=== PATIENT | female | born 1940 | race Caucasian/White ===

== ENCOUNTER 2016-09-05 22:40 | Emergency (ER) | payer MEDICARE ==
[~2016-09-05] VITALS: Ht 165.1 cm; Wt 75.0 kg
[2016-09-05 22:53] VITALS: BP 112/59; PULSE 72; RESP 18; TEMP 98.6; O2SAT 95
--- NOTE | 2016-09-05 22:56 | PD ---
HPI Chief Complaint: Fall Time Seen by Provider: 22:53 Travel History International Travel<30 days: No Contact w/Intl Traveler<30days: No Traveled to known affect area: No History of Present Illness HPI The patient is a 76 year old female who presents to the [facility] emergency department with a history of tripping over a car stopped in a local parking lot prior to arrival. The patient reports that she landed on both knees. The patient reports that the left knee hurts more than the right. The patient reports that she has had a patellar fracture in the left knee twice in the past, 15 years ago she had surgery on the left knee and again 9 years ago surgery on the left knee related to patellar fractures. She denies having a local orthopedic physician currently. The patient denies hitting her head or losing consciousness. She denies having any neck pain, numbness or tingling to her extremities, or weakness to her extremities. She denies having any chest pain, chest pressure, shortness of breath, or abdominal pain. Otherwise on review of systems, she denies any recent fevers, cough, congestion, vomiting, diarrhea, urinary symptoms, or other neurologic symptoms. Tetanus reportedly up to date. [facility] Past Medical History Narrative Medical The patient's past medical history is significant for ulcerative colitis, hypertension ?: Not Past Surgical History Narrative Surgical The patient's past surgical history is significant for left patella surgery 2. Social History Alcohol Use: Yes (2 glasses of wine daily) Tobacco Use: No Substance Use: No Allergies-Medications (Allergen,Severity, Reaction): Coded Allergies: No Known Allergies (Unverified , 09/05/16) Reported Meds & Prescriptions Reported Meds & Active Scripts Active Lortab (Hydrocodone-Acetaminophen) 5-325 Mg Tab 1 Tab PO Q6H PRN Reported Prednisone 10 Mg Tab 10 Mg PO DAILY Calcium (Oyster Shell) 500 Mg Tab 1,000 Mg PO Prolia Inj (Denosumab) 60 Mg/Ml Inj 60 Mg SQ Q180D Vitamin D-1000 (Cholecalciferol) 1,000 Unit Tab 1,000 Units PO DAILY Alprazolam 0.5 Mg Tab 0.5 Mg PO BID PRN Losartan (Losartan Potassium) 25 Mg Tab 25 Mg PO DAILY Hydrochlorothiazide 12.5 Mg Cap 12.5 Mg PO DAILY Verapamil (Verapamil HCl) 40 Mg Tab 40 Mg PO BID Narrative Medication Asacol, verapamil, alprazolam, hydrochlorothiazide, losartan Review of Systems Except as stated in HPI: all other systems reviewed are Neg General / Constitutional: No: Fever Eyes: No: Visual changes HENT: No: Headaches Cardiovascular: No: Chest Pain or Discomfort Respiratory: No: Shortness of Breath Gastrointestinal: No: Abdominal Pain Genitourinary: No: Dysuria Musculoskeletal: Positive: Myalgias, Arthralgias, Limited ROM, Edema, Pain Skin: No Rash Neurologic: No: Weakness, Focal Abnormalities, Change in Mentation, Slurred Speech, Sensory Disturbance Psychiatric: No: Depression Endocrine: No: Polydipsia Hematologic/Lymphatic: No: Easy Bruising Physical Exam Narrative General: The patient is a well-developed well-nourished female in no acute distress. Head and Neck exam: Head is normocephalic atraumatic. Eyes: EOMI, pupils are equal round and reactive to light. Nose: Midline septum with pink mucous membranes Mouth: Dentition unremarkable. Moist mucus membranes. Posterior oropharynx is not erythematous. No tonsillar hypertrophy. Uvula midline. Airway patent. Neck: No palpable lymphadenopathy. No nuchal rigidity. No thyromegaly. No spinous process tenderness to palpation. No step-off or crepitus. No erythema or ecchymosis. She has full range of neck motion without pain. Cardiovascular: Regular rate and rhythm without murmurs, gallops, or rubs. Lungs: Clear to auscultation bilaterally. No wheezes, rhonchi, or rales. Abdomen: Soft, without tenderness to palpation in all 4 quadrants of the abdomen. No guarding, rebound, or rigidity. Normal bowel sounds are audible. No tenderness on palpation of McBurney's point. Extremities: No clubbing, cyanosis, or edema. 2+ pulses in all 4 extremities. The area of interest is bilateral knees. The patient has swelling noted anteriorly to bilateral knees. The patient has tenderness on palpation over bilateral knees with an effusion noted. There is no ligament laxity. There is no step-off or crepitus on palpation. The patient has decreased range of motion related to pain. The patient has intact sensation over all toes. The patient has less than 3 second capillary refill. The patient has full strength and range of motion of her ankles and toes. No ligamentous injury on palpation. Back: No spinous process tenderness to palpation. No spinous process tenderness to palpation. No step-off or crepitus. No erythema or ecchymosis. No costovertebral angle tenderness to palpation. Neurologic Exam: Grossly nonfocal. Skin Exam: No rash noted. She has a superficial abrasion to the left posterior elbow. Data Data Last Documented VS Vital Signs Date Time Temp Pulse Resp B/P Pulse Ox O2 Delivery O2 Flow Rate FiO2 09/06/16 00:40 86 18 151/70 95 Room Air 09/05/16 22:53 98.6 Orders Knee, Complete (4vws) (09/05/16 22:54) Ice/Cold Pack (09/05/16 22:54) Knee, Complete (4vws) (09/05/16 22:54) Complete Blood Count With Diff (09/05/16 23:46) Basic Metabolic Panel (Bmp) (09/05/16 23:46) Prothrombin Time / Inr (Pt) (09/05/16 23:46) Act Partial Throm Time (Ptt) (09/05/16 23:46) Iv Access Insert/Monitor (09/05/16 23:46) Ecg Monitoring (09/05/16 23:46) Oximetry (09/05/16 23:46) Splint Or Brace Apply/Monitor (09/05/16 23:46) Morphine Inj (Morphine Inj) (09/06/16 00:00) Ondansetron Inj (Zofran Inj) (09/06/16 00:00) Sodium Chlorid 0.9% 500 Ml Inj (Ns 500 M (09/06/16 00:00) Potassium Chloride (Kcl) (09/06/16 01:15) Ketorolac Inj (Toradol Inj) (09/06/16 01:15) Labs Laboratory Tests Test 09/06/16 00:00 White Blood Count 7.2 TH/MM3 Red Blood Count 4.06 MIL/MM3 Hemoglobin 12.4 GM/DL Hematocrit 37.0 % Mean Corpuscular Volume 91.1 FL Mean Corpuscular Hemoglobin 30.5 PG Mean Corpuscular Hemoglobin 33.5 % Concent Red Cell Distribution Width 14.7 % Platelet Count 246 TH/MM3 Mean Platelet Volume 7.6 FL Neutrophils (%) (Auto) 57.8 % Lymphocytes (%) (Auto) 33.5 % Monocytes (%) (Auto) 7.4 % Eosinophils (%) (Auto) 0.6 % Basophils (%) (Auto) 0.7 % Neutrophils # (Auto) 4.1 TH/MM3 Lymphocytes # (Auto) 2.4 TH/MM3 Monocytes # (Auto) 0.5 TH/MM3 Eosinophils # (Auto) 0.0 TH/MM3 Basophils # (Auto) 0.0 TH/MM3 CBC Comment DIFF FINAL Differential Comment Prothrombin Time 9.6 SEC Prothromb Time International 0.9 RATIO Ratio Activated Partial 19.8 SEC Thromboplast Time Sodium Level 143 MEQ/L Potassium Level 3.2 MEQ/L Chloride Level 105 MEQ/L Carbon Dioxide Level 27.1 MEQ/L Anion Gap 11 MEQ/L Blood Urea Nitrogen 16 MG/DL Creatinine 0.75 MG/DL Estimat Glomerular Filtration 76 ML/MIN Rate Random Glucose 101 MG/DL Calcium Level 9.0 MG/DL MDM Medical Decision Making Medical Screen Exam Complete: Yes Emergency Medical Condition: Yes Medical Record Reviewed: Yes Interpretation(s) Last Impressions Knee X-Ray 09/05/162253 Signed Impressions: Service Date/Time: Monday, September 05, 2016 23:13 - CONCLUSION: 1. Mildly comminuted transverse fracture through the inferior patella with overlying soft tissue swelling. 2. Lipohemarthrosis. 3. Osteopenia. Karlos Perez MD Knee X-Ray 09/05/162253 Signed Impressions: Service Date/Time: Monday, September 05, 2016 23:16 - CONCLUSION: 1. No acute fracture or malalignment. 2. Status post open region internal fixation of old patellar fracture. 3. Evidence of joint effusion. Karlos Perez MD Differential Diagnosis Patellar fracture, versus internal derangement of the knee, versus knee effusion , versus ligamentous injury Narrative Course During the course of the patients emergency department visit, the patients history, examination, and differential diagnosis were reviewed with the patient. The patient had IV access obtained and blood work sent for analysis. The patient states on a quality assurance monitor body with oximetry and blood pressure monitoring. An x-ray of bilateral knees was ordered. The patient was initially provided morphine for pain, Zofran for nausea, normal saline IV fluids. The patients laboratory studies were reviewed and remarkable for CBC is within normal limits, basic metabolic profile is remarkable for potassium of 3.2, GFR 76, PT 9.6, PTT 19.8. Radiology studies were reviewed and remarkable for an x-ray of the left knee that shows no acute fracture or malalignment, status post open reduction internal fixation of an old patella fracture, evidence of joint effusion, right knee x-ray reveals a mildly comminuted transverse fracture through the inferior patella with overlying soft tissue swelling, lipohemarthrosis, osteopenia. The patient was placed in bilateral knee immobilizers. The patient was given the name of the orthopedic physician for follow-up, Dr. Sanford. She was instructed to not weight-bear until cleared by the orthopedic physician. She was given a prescription for a wheelchair. The patient is resting comfortably and feels better, is alert and in no distress. The patients results and examination findings were discussed with the patient. The repeat examination is unremarkable and benign. The history, exam, diagnostic testing, and current condition do not suggest any significant pathology to warrant further testing, continued ED treatment, admission, or surgical evaluation at this point. The vital signs have been stable. The patient does not have uncontrollable pain, intractable vomiting, or other significant symptoms. The patient's condition is stable and appropriate for discharge. The patient will pursue further outpatient evaluation with a primary care physician or other designated or consulting physician as indicated in the discharge instructions. The patient expressed understanding and was agreeable with this plan. Diagnosis Primary Impression: Patellar sleeve fracture of right knee Qualified Code: S82.091A - Patellar sleeve fracture of right knee, closed, initial encounter Additional Impression: Left anterior knee pain Referrals: Omar Sanford MD 1 day Orthopedist Patient Instructions: General Instructions, Patellar Fracture (ED) Departure Forms: Tests/Procedures Med/Other Pt SpecificInfo: Prescription(s) given Scripts Wheelchair 1 Mis Mis #1 EA .ROUTE DIRECTED Ref 0 Prov:Evy Talley MD 09/06/16 Hydrocodone-Acetaminophen (Lortab)5-325 Mg Tab1 Tab PO Q6H PRN (PAIN) #12 TAB Ref 0 Prov:Evy Talley MD 09/06/16 Disposition: 01 DISCHARGE HOME Condition: Stable Evy Talley MD Sep 05, 2016 22:56
[2016-09-05] MEDS ORDERED: CALC500T35 PO (23:06)
[2016-09-05] MEDS ORDERED: PRED10 PO (23:06)
[2016-09-05] MEDS ORDERED: HYDR12.57 PO (23:06)
[2016-09-05] MEDS ORDERED: ALPR0.5T3 PO (23:06)
[2016-09-05] MEDS ORDERED: VITA1000 PO (23:06)
[2016-09-05] MEDS ORDERED: LOSA25TA PO (23:06)
[2016-09-05] MEDS ORDERED: DENO60P SQ (23:06)
[2016-09-05] MEDS ORDERED: VERA40TA PO (23:06)
--- NOTE | 2016-09-05 23:41 | RADRPT ---
EXAM DATE/TIME: 09/05/2016 23:13 [facility] COMPARISON: No previous studies available for comparison. INDICATIONS : Fall landed on knees. MEDICAL HISTORY : None. SURGICAL HISTORY : None. ENCOUNTER: Initial ACUITY: 1 day PAIN SCORE: 0/10 LOCATION: Right knee FINDINGS: A standard 4 view examination of the right knee was obtained and demonstrates a mildly comminuted tra nsverse fracture through the inferior pole of the patella. The inferior fracture fragment is displace d approximately 1 cm posteriorly. There is overlying soft tissue swelling and evidence of a lipohemar throsis. There is diffuse osteopenia. The femur and tibia are intact. CONCLUSION: 1. Mildly comminuted transverse fracture through the inferior patella with overlying soft tissue swel ling. 2. Lipohemarthrosis. 3. Osteopenia. Karlos Perez MD on September 05, 2016 at 23:38 Board Certified Radiologist. This report was verified electronically.
--- NOTE | 2016-09-05 23:42 | RADRPT ---
EXAM DATE/TIME: 09/05/2016 23:16 This report includes an Addendum and supersedes previous reports for this exam. [facility] COMPARISON: No previous studies available for comparison. INDICATIONS : Fall landed on knees. Laceration to anterior knee. MEDICAL HISTORY : None. SURGICAL HISTORY : Left patella surgery. ENCOUNTER: Initial ACUITY: 1 day PAIN SCORE: 0/10 LOCATION: Left knee FINDINGS: A standard 4 view examination of the left knee was obtained and demonstrates remote postsurgical prakash ges with K wires and cerclage wires surrounding an old patellar fracture. There is no acute fracture or malalignment. There are degenerative changes in the patellofemoral joint with mild spurring. There is fullness in the suprapatellar bursa region consistent with a joint effusion. The femur is intact. CONCLUSION: 1. No acute fracture or malalignment. 2. Status post open region internal fixation of old patellar fracture. 3. Evidence of joint effusion. Karlos Perez MD on September 05, 2016 at 23:40 Board Certified Radiologist. This report was verified electronically. ADDENDUM: I reviewed the study again with Dr. Arriaza. On the lateral view there is evidence for a small non displaced cortical break through the posterior mid pole of the patella most characteristic of a nondi splaced fracture with joint effusion. Nehemias Granda MD on September 07, 2016 at 11:17 Board Certified Radiologist. This report was verified electronically.
[2016-09-06] MEDS ORDERED: SODIUM CHLORID 0.9% 500 ML INJ 500 ML IV ONE
[2016-09-06] MEDS ORDERED: ONDANSETRON HCL 4 MG/2 ML VIAL IV PUSH ONE
[2016-09-06] MEDS ORDERED: MORPHINE SULFATE 4 MG/ML INJ IV PUSH ONE
[2016-09-06 00:15] LABS: AUTOMATED NEUTROPHIL # 4.1 TH/MM3 (1.8-7.7); BASOPHIL % 0.7 % (0.0-2.0); EOSINOPHIL % 0.6 % (0.0-4.0); HEMO FLAGS DIFF FINAL; LYMPH % 33.5 % (9.0-44.0); LYMPHOCYTE # 2.4 TH/MM3 (1.0-4.8); MEAN CELL VOLUME 91.1 FL (80.0-100.0); MEAN CORPUSCULAR HEMOGLOBIN 30.5 PG (27.0-34.0); MEAN CORPUSCULAR HGB CONC 33.5 % (32.0-36.0); MONO % 7.4 % (0.0-8.0); NEUT % 57.8 % (16.0-70.0); PLATELET COUNT 246 TH/MM3 (150-450); RED BLOOD COUNT 4.06 MIL/MM3 (4.00-5.30); RED CELL DISTRIBUTION WIDTH 14.7 % (11.6-17.2); WHITE BLOOD COUNT 7.2 TH/MM3 (4.0-11.0)
[2016-09-06 00:34] LABS: APTT (PATIENT) 19.8 SEC (24.3-30.1); INTERNATIONAL NORMALIZED RATIO 0.9 RATIO; PROTHROMBIN TIME - PATIENT 9.6 SEC (9.8-11.6)
[2016-09-06 00:40] VITALS: BP 151/70; PULSE 86; RESP 18; O2SAT 95
[2016-09-06 00:45] LABS: BICARBONATE 27.1 MEQ/L (21.0-32.0); POTASSIUM 3.2 MEQ/L (3.5-5.1)
[2016-09-06] MEDS ORDERED: HYDR-3533 PO (00:50)
[2016-09-06] MEDS ORDERED: POTASSIUM CHLORIDE 20 MEQ CONTROLLED RELEASE TAB PO ONE (01:15)
[2016-09-06] MEDS ORDERED: KETOROLAC TROMETHAMINE 30 MG/ML (IVP) VIAL IV PUSH ONE (01:15)
[2016-09-06] MEDS ORDERED: WHEEMIS3 (01:19)
[2016-09-06] MEDS ORDERED: oxyCODONE/ACETAMINOPHEN 5 MG/325 MG TAB PO ONE (02:30)
== END 2016-09-06 02:37 | disposition home or self-care (01) ==
LOC: NEPE 22:40
DX: S82.091A Other fracture of right patella, initial encounter for closed fracture (principal); M25.562 Pain in left knee; S50.312A Abrasion of left elbow, initial encounter; I10 Essential (primary) hypertension; Z91.81 History of falling; W01.198A Fall on same level from slipping, tripping and stumbling with subsequent striking against other object, initial encounter; Y93.89 Activity, other specified; Y92.481 Parking lot as the place of occurrence of the external cause; Z79.899 Other long term (current) drug therapy
CPT/HCPCS: 73564; 80048; 85025; 85610; 85730; 96374; 96375; 99284; E0113; J1885; J2270; J2405; J7040; L1830

== ENCOUNTER 2016-09-08 12:43 | Inpatient (IN) | payer MEDICARE ==
[~2016-09-08] VITALS: Ht 165.1 cm; Wt 142.5 kg
[~2016-09-08 12:43] MED LIST: ALPR0.5T3 PO; BUPIVACAINE HCL PF 0.5% 30 ML VIAL NERV BLOCK ONE; CALC500T35 PO; DENO60P SQ; HYDR-3533 PO; HYDR12.57 PO; LOSA25TA PO; PRED10 PO; VERA40TA PO; VITA1000 PO; WHEEMIS3
[2016-09-08] MEDS ORDERED: GENTAMICIN SULFATE 80 MG/2 ML VIAL ONE (12:55)
[2016-09-08] MEDS ORDERED: ceFAZolin INJ 1,000 MG VIAL ONE (12:55)
[2016-09-08] MEDS ORDERED: BUPIVACAINE/EPINEPHRINE 0.25% 50 ML VIAL ONE (12:58)
[2016-09-08] MEDS ORDERED: PROPOFOL 200 MG/20 ML AMP IV ONE (13:23)
[2016-09-08] MEDS ORDERED: LACTATED RINGER'S 1000 ML INJ 1,000 ML IV ONE (13:24)
[2016-09-08] MEDS ORDERED: NEOSTIGMINE 3 MG/3 ML SYR IV ONE (13:24)
[2016-09-08] MEDS ORDERED: ONDANSETRON HCL 4 MG/2 ML VIAL IV PUSH ONE (13:24)
[2016-09-08 13:34] VITALS: BP 143/79; PULSE 81; RESP 16; TEMP 97.1; O2SAT 96
[2016-09-08] MEDS ORDERED: ASAC800T PO (13:34)
[2016-09-08] MEDS ORDERED: PRED10 PO (13:34)
[2016-09-08] MEDS ORDERED: TRAM50TA PO (13:34)
[2016-09-08] MEDS ORDERED: RIZA10TA2 (13:34)
[2016-09-08] MEDS ORDERED: INSULIN HUMAN REGULAR 1,000 UNITS/10 ML VIAL SQ PRN (14:00)
[2016-09-08] MEDS ORDERED: SODIUM CHLORID 0.9% 500 ML IV PRN (14:00)
[2016-09-08] MEDS ORDERED: ceFAZolin 1,000 MG/NS 100 ML IV ONE ×2 (14:00)
[2016-09-08] MEDS ORDERED: POVIDONE IODINE 5% (ANTISEPSIS KIT) 4 APPLICATIONS EACH NARE PRN (14:00)
[2016-09-08] MEDS ORDERED: CHLORHEXIDINE GLUCONATE 2 % 1 PACK (2 CLOTHS) TOPICAL PRN (14:00)
[2016-09-08] MEDS ORDERED: METOPROLOL TARTRATE 25 MG TAB PO PRN (14:00)
[2016-09-08] MEDS ORDERED: LACTATED RINGER'S 1000 ML IV PRN (14:00)
[2016-09-08] MEDS ORDERED: FAMOTIDINE 20 MG/2 ML VIAL ONE (14:12)
[2016-09-08] MEDS ORDERED: ACETAMINOPHEN 1000 MG/100 ML VIAL IV ONE (14:12)
[2016-09-08] MEDS ORDERED: fentaNYL CITRATE 250 MCG/5 ML AMP ONE (14:12)
[2016-09-08] MEDS ORDERED: MIDAZOLAM HCL 2 MG/2 ML VIAL ONE (14:12)
[2016-09-08] MEDS ORDERED: Post-op Orders (for Pharmacy) MISC XX ONE (16:15)
[2016-09-08] MEDS ORDERED: SENNOSIDES 8.6 MG TAB PO PRN (16:15)
[2016-09-08] MEDS ORDERED: MORPHINE SULFATE 8 MG/ML INJ IV PUSH PRN (16:15)
[2016-09-08] MEDS ORDERED: ALUMINUM/MAGNESIUM/SIMETH 30 ML CUP PO PRN (16:15)
[2016-09-08] MEDS ORDERED: ACETAMINOPHEN/HYDROcodone 325 MG/7.5 MG TAB PO PRN (16:15)
[2016-09-08] MEDS ORDERED: LACTULOSE SYRUP 20 GM/30 ML CUP PO PRN (16:15)
[2016-09-08] MEDS ORDERED: SODIUM CHLORIDE 0.9% FLUSH 10 ML FLUSH IV FLUSH PRN (16:15)
[2016-09-08] MEDS ORDERED: BISACODYL 10 MG SUPP RECTAL PRN (16:15)
[2016-09-08] MEDS ORDERED: ZOLPIDEM TARTRATE 5 MG TAB PO PRN (16:15)
[2016-09-08] MEDS ORDERED: ONDANSETRON HCL 4 MG/2 ML VIAL IVP PRN (16:15)
[2016-09-08] MEDS ORDERED: MAGNESIUM HYDROXIDE SUSP 30 ML CUP PO PRN (16:15)
[2016-09-08] MEDS ORDERED: DO NOT ADM ANY ANTICOAGULANT DRUGS PRN (16:35)
[2016-09-08] MEDS ORDERED: traMADol HCL 50 MG TAB PO PRN (16:45)
[2016-09-08] MEDS ORDERED: ALPRAZolam 0.5 MG TAB PO PRN (16:45)
--- NOTE | 2016-09-08 16:56 | HHI.FF ---
Face to Face Verification Diagnosis: (1) Fracture of patella, right, closed (2) Fracture of patella, left, closed Physical Therapy Knee: Knee fracture, Protocol: Right, Protocol: Left, Gait training, Full weight bearing (Use knee immobilizers when walking.) Canvas Knee Splint: At all times Right LE Weight Bearing: WB as tolerated (Use knee immobilizers when walking.) Right LE Range of Motion: No ROM Left LE Weight Bearing: WB as tolerated (Use knee immobilizers when walking.) Left LE Range of Motion: No ROM Nursing Nursing: Dressing changes Dressing Changes: Daily dressing change, Coverderm/Primapore Additional Instructions Remove steristrips on postop day 14. I have seen patient Tamiko Kwan on 09/08/16. My clinical findings support the need for the requested home health care services because: Ltd mobility - disease progression Limited ability to care for self High risk of falls I certify that my clinical findings support that this patient is homebound because: Unsteady gait/balance Unsafe to leave home unassisted Katia Arriaza MD ([place]) Sep 08, 2016 16:56
[2016-09-08] MEDS ORDERED: HYDR-3580 PO (16:58)
[2016-09-08] MEDS ORDERED: *ONDANSETRON 4 MG VIAL PERIprocedural Use ONLY ONE (17:16)
--- NOTE | 2016-09-08 17:28 | RADRPT ---
EXAM DATE/TIME: 09/08/2016 16:57 [facility] COMPARISON: KNEE LEFT COMPLETE (4VWS), September 05, 2016, 23:16. INDICATIONS : Post op partial right patellectomy MEDICAL HISTORY : Fractured right patella SURGICAL HISTORY : None. ENCOUNTER: Initial ACUITY: 1 day PAIN SCORE: 0/10 LOCATION: Right patella FINDINGS: Alignment is anatomic in splint. I see no radiopaque foreign bodies. Trace air is seen in the capsu le. CONCLUSION: Anatomic alignment. There is no residual hardware. Lito Matute MD FACR on September 08, 2016 at 17:25 Board Certified Radiologist. This report was verified electronically.
[2016-09-08] MEDS: KETOROLAC TROMETHAMINE 30 MG/ML (IVP) VIAL IVP SCH (17:30)
[2016-09-08] MEDS ORDERED: *morphine SULFATE 8 MG/ML PERIprocedure ONLY ONE (17:46)
[2016-09-08] MEDS ORDERED: MESALAMINE HD 800 MG DELAYED RELEASE TAB PO SCH (18:00)
--- NOTE | 2016-09-08 18:01 | MP ---
cc: Beryl TEIXEIRA. DATE OF SURGERY 05/12/16 PREOPERATIVE DIAGNOSIS Comminuted fracture distal pole right patella. POSTOPERATIVE DIAGNOSIS Closed comminuted displaced fracture distal pole, right patella. OPERATION PERFORMED Right partial patellectomy SURGEON Shaan Teixeira MD FORESTRY PATROLMAN Dung Ramos ANESTHESIA General endotracheal with supplemental femoral nerve block by Dr. Dodge INDICATIONS AND FINDINGS This 76-year-old woman fell directly onto her knees a few days prior to admission. She sustained a closed comminuted fracture of the right patella with some displacement. She also has a closed nondisplaced fracture of the left patella with hardware in place. She had tenderness in the anterior aspect of both knees clinically. Her motion is limited. There is a large effusion. X-rays of the right knee showed a displaced comminuted fracture of the patella. Operative findings were consistent with a fracture of the patella with multiple small fragments but good preservation of the articular surface which was not involved in the fracture itself. The bone quality was soft. PROCEDURE IN DETAIL The patient was brought to the operating room and a general anesthetic was administered. She received a femoral nerve block. The small bolster was placed under the right hip. The leg was then prepped with alcohol, Hibiclens and Chloraprep and draped in the usual manner with the knee draped free. She received prophylactic antibiotics in the form of Ancef. This was according to protocol. An appropriate time-out procedure was carried out. An anterior incision was made from the superior pole of the patella down to the upper portion of the tibial tubercle. The incision was deepened through the subcutaneous tissues to the fracture site. The patella tendon was exposed through the fascia. The defect in the patella was opened and cleaned. This was then irrigated well. Hemarthrosis was evacuated from the knee. Clot was evacuated from the fracture site. The fracture was carefully assessed and it was found that the fragments were too small to repair. These fragments were then shelled out sharply with a scalpel. After this was done, a #5 FiberWire suture was passed through the medial aspect of the patella and then brought down into the patella tendon. A Krokow suture was then carried out in the patella. This was then brought through the patella again. This was then repeated with a second #5 FiberWire on the lateral side of the patella and patella tendon. After this was completed, the patella tendon was then reattached to the patella via these transosseous sutures. A stable repair was achieved. The remainder of the retinaculum was then repaired with #2 Ethibond suture. The anterior fascia was closed with 2-0 Vicryl interrupted [id number] sutures. The subcutaneous tissue was closed with 2-0 Vicryl interrupted simple sutures with buried knots. The skin was closed with continuous subcuticular closure of 4-0 Monocryl. The wound was then dressed with Steri-Strips followed by dry dressing, sterile Sof-Rol, Pee bandage. She was placed back into her knee immobilizers on both sides. She was then transferred from the operating room to the recovery room in satisfactory condition having tolerated the procedure well. Counts were correct. Specimens none. Estimated blood loss 30 mL. MD RICHARDSON Cotter/ /5:01 PM /5:37 PM NADYA
[2016-09-08] MEDS: DOCUSATE SODIUM 50 MG/SENNA 8.6 MG TAB PO SCH (20:31)
[2016-09-08] MEDS: VERAPAMIL HCL 40 MG TAB PO SCH (20:33)
[2016-09-08 20:35] VITALS: BP 122/65; PULSE 75; RESP 17; TEMP 97.5; O2SAT 96
[2016-09-08] MEDS: SODIUM CHLORIDE 0.9% FLUSH 10 ML FLUSH IV FLUSH SCH (20:35)
[2016-09-08 21:00] VITALS: O2SAT 96
[2016-09-09] VITALS (7 sets, daily range): BP systolic 138–158; BP diastolic 63–77; PULSE 76–98; RESP 16–17; TEMP 96.7–98.3; O2SAT 94–98
[2016-09-09] MEDS: KETOROLAC TROMETHAMINE 30 MG/ML (IVP) VIAL IVP SCH ×5 (00:29→22:00)
[2016-09-09] MEDS: RIVAROXABAN 10 MG TAB PO SCH (04:59)
[2016-09-09] MEDS: ACETAMINOPHEN/HYDROcodone 325 MG/7.5 MG TAB PO PRN ×4 (05:00→17:53)
[2016-09-09] MEDS: VERAPAMIL HCL 40 MG TAB PO SCH (08:36)
[2016-09-09] MEDS: predniSONE 10 MG TAB PO SCH (08:36)
[2016-09-09] MEDS: DOCUSATE SODIUM 50 MG/SENNA 8.6 MG TAB PO SCH ×2 (08:40→19:21)
[2016-09-09] MEDS: CHOLECALCIFEROL (VIT D3) 1000 UNIT TAB PO SCH (08:40)
[2016-09-09] MEDS: SODIUM CHLORIDE 0.9% FLUSH 10 ML FLUSH IV FLUSH SCH ×2 (08:42→19:21)
--- NOTE | 2016-09-09 08:50 | PD.ORT.PN ---
Subjective Post Op Day #: 1 Subjective Remarks She is doing well. There is little pain. She has not been OOB yet. 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 Objective Vitals Vital Signs Date Time Temp Pulse Resp B/P Pulse Ox O2 Delivery O2 Flow Rate FiO2 09/09/16 04:16 96.9 78 17 139/71 95 09/09/16 00:29 96.7 79 17 138/77 97 09/08/16 21:00 96 Nasal Cannula 3.00 09/08/16 20:35 97.5 75 17 122/65 96 09/08/16 18:00 98.0 74 15 131/60 100 Nasal Cannula 3 09/08/16 17:30 72 16 134/72 98 Nasal Cannula 3 09/08/16 17:15 74 16 134/68 98 Nasal Cannula 3 09/08/16 17:00 76 17 139/72 98 Nasal Cannula 3 09/08/16 16:45 85 16 130/64 98 Nasal Cannula 3 09/08/16 16:36 98.5 98 15 133/62 98 Nasal Cannula 3 09/08/16 13:34 97.1 81 16 143/79 96 I/O 09/08/16 09/08/16 09/08/16 09/09/16 09/09/16 09/09/16 07:00 15:00 23:00 07:00 15:00 23:00 Intake Total 1715 ml 365 ml Output Total 300 ml Balance 1415 ml 365 ml Intake Oral 240 ml 240 ml IV Total 225 ml 125 ml Other 1250 ml Output Urine Total 150 ml Estimated Blood Loss 150 ml # Voids 1 1 # Bowel Movements 0 0 Imaging Last 72 hours Impressions Knee X-Ray 09/08/16 0000 Signed Impressions: Service Date/Time: Thursday, September 08, 2016 16:57 - CONCLUSION: Anatomic alignment. There is no residual hardware. Lito Matute MD FACR Objective Remarks She is resting comfortably, supine in bed. The neurovascular status is intact. The dressing is dry and intact. Assessment & Plan Ortho Post Op Day #: 1 Problem List: (1) Fracture of patella, right, closed Plan: Continue postop care. Start PT. CKS is needed to protect the repair. (2) Fracture of patella, left, closed Plan: Start PT. CKS is needed to protect the fracture. Assessment and Plan Condition: Good. Orthopaedically stable. Needs rehab to help her walk and do ADL with bilateral patella fractures. She will need to use the CKS on each. She needs to talk to secondary social studies teacher/discharge planning to help he get rehab, preferably in [place] as well as finding resources for the care of her . Katia Arriaza MD ([facility]) Sep 09, 2016 08:49
[2016-09-09] MEDS ORDERED: HYDROCHLOROTHIAZIDE 12.5 MG CAP PO SCH (09:00)
[2016-09-09] MEDS ORDERED: LOSARTAN 25 MG TAB PO SCH (09:00)
--- NOTE | 2016-09-09 13:09 | EKG ---
Date Performed: 09/08/2016 Time Performed: 13:38:59 PTAGE: 76 years EKG: Sinus rhythm INFERIOR MYOCARDIAL INFARCTION , OF INDETERMINATE AGE MODERATE T-WAVE ABNORMALITY, CONSIDER ANTERIOR ISCHEMIA ABNORMAL ECG NO PREVIOUS TRACING DOCTOR: Sri Silva Interpretating Date/Time 09/09/2016 13:08:47
--- NOTE | 2016-09-09 15:25 | MB ---
cc: JUAN APONTE DATE OF CONSULTATION 09/09/2016 Consultation requested by Agata Arriaza MD REASON FOR CONSULTATION Assistance with medical management including hypertension, gastroesophageal reflux disease, ulcerative colitis and anxiety disorder. HISTORY OF PRESENT ILLNESS This is a 76-year-old white female fell on 4 days prior to the consultation. While exiting a restaurant she landed on her knees and had sudden onset of severe pain in both knees and was unable to arise from the ground. The patient was taken to the emergency department where imaging studies revealed a comminuted fracture of the right patella. The left patella had previously been fractured and had surgical repair. It was uncertain whether there was a new fracture on the left. The patient was placed in bilateral knee immobilizers and sent home. The undersigned physician's office arranged for the patient to be seen by Dr. Arriaza for orthopedic consultation and Dr. Arriaza felt the patient had bilateral patellar fractures but the right was comminuted which would require surgical intervention. The patient was admitted to the hospital on 09/08/2016 following a surgical intervention for the right patellar fractures surgery. The patient had a partial right patellectomy. She is now postop day #1. The patient has a nerve block in the right lower extremity so her pain is under adequate control. She has hydrocodone APAP ordered for pain. She has had no chest pain, shortness of breath, palpitations, nausea, vomiting, diarrhea, headaches, visual changes, cough, sputum production, abdominal pain, diarrhea, urinary urgency, frequency, dysuria, hematuria or incontinence. The patient remains in bilateral knee immobilizers. The patient was ambulated by physical therapy today. She is able to ambulate 25 feet. Her oral intake is good at this time. PAST MEDICAL HISTORY Her past medical history is significant for osteoarthritis. Lumbar spinal stenosis, peripheral neuropathy in the lower extremities, ulcerative colitis, diverticulosis, hemorrhoids, hypertension. Anxiety disorder, migraine headaches, hyperlipidemia and osteoporosis. She is status post an ORIF of the left wrist in 2007. She had Mohs microsurgery for removal of skin cancer in the past. She is status post bilateral cataract removal with lens implants. She had an ORIF of the left patella twice due to fractures, first was in 1992 and second was in 2008. MEDICATIONS Current medications are: 1. Prolia 60 milligrams subcutaneously every 6 months for osteoporosis. 2. Duloxetine 30 milligrams daily. 3. Omeprazole 20 milligrams daily. 4. Asacol 400 milligrams 3 tablets twice daily. 5. Hydrocodone/APAP 7.5/325 milligrams 1 tablet every 6 hours needed for pain. 6. Prednisone 10 milligrams daily. 7. Losartan 100 milligrams daily. 8. Verapamil CR 120 milligrams daily. 9. Tramadol 50 milligrams 1 to 2 tablets every 8 hours as needed for pain. 10. Calcium 500 milligrams daily. 11. Vitamin D3 5000 international units daily. 12. Alprazolam 0.5 milligrams 1 tablet three times a day as needed for anxiety. 13. Hydrochlorothiazide 25 milligrams 1 tablet daily. 14. B12 1000 micrograms daily. 15. Rizatriptan 10 milligrams 1 tablet sublingual daily as needed for migraine headaches. ALLERGIES She has no known drug allergies. FAMILY HISTORY Positive for myocardial infarction and kidney stones in her father. Her mother had osteoarthritis, skin cancer, gout, a myocardial infarction, hypertension, anxiety and hypothyroidism. Her children have skin cancer, anxiety and depression. IMMUNIZATION HISTORY She had the Prevnar 13 pneumococcal vaccination on February 03, 2014. Her influenza vaccination was last done on November 19, 2015 and she had the 23 Valent pneumococcal vaccine on March 25, 2013. SOCIAL HISTORY She is . She is a retired registered nurse. She lives at home with her . She consumes alcohol on a social basis in the form of one to two drinks several days a week, usually in the form of wine. She smoked in the past but has not smoked in many years. REVIEW OF SYSTEMS Review of systems is negative except as outlined above. PHYSICAL EXAMINATION VITAL SIGNS: At the current time the patient's blood pressure is 142/63, a heart rate 86, respirations 16, temperature 97.9 degrees Fahrenheit, oxygen saturation on room air is 94%. GENERAL: In general, this is an overweight elderly white female, sitting up in a chair in no acute distress. HEENT: The pupils aer equal, round, reactive to light. Extraocular movements are intact. Sclerae anicteric. Conjunctive were pink. Bilateral lens implants in place. Mouth and throat reveal moist mucous membranes. No erythema or exudates. Dentition is good. NECK: Supple without lymphadenopathy, JVD, bruits or thyromegaly. CARDIOVASCULAR: Regular rate and rhythm without murmurs, rubs or gallops. LUNGS: Clear to auscultation without wheezes, rhonchi or rales. ABDOMEN: Soft, nontender, nondistended. Bowel sounds present. No mass palpable. No splenomegaly. & RECTAL: Deferred. EXTREMITIES: The bilateral lower extremities are in knee immobilizers. The distal pulses are 2+. There is good perfusion distally. NEUROLOGIC EXAMINATION: The patient is awake, alert, oriented x3. Speech intact. Cranial nerves intact. She has 5/5 strength in the upper and lower extremities with limited testing in the bilateral lower extremities. SKIN: Warm and dry. No significant rashes or lesions. IMPRESSION AND PLAN 1. This 76-year-old white female is postop day #1 status post a right partial patellectomy. She also has a left patellar fracture. At this point her pain is under adequate control. Her nerve block is starting to wear off and she has the hydrocodone available to use for pain. She will remain in the bilateral knee immobilizers. Wound care for the right knee is deferred to Dr. Arriaza as are all therapy orders. 2. Hypertension. Blood pressure under adequate control with current medication. I did review the patient's medication list and her verapamil was incorrectly placed as 40 milligrams twice daily. I have corrected the dosage of Verapamil, otherwise, she will continue with her usual antihypertensive medication. 3. History of ulcerative colitis. The patient has Asacol which she takes 3 tablets twice a day. She has her medication from home and she will continue to utilize that. She will continue with prednisone 10 milligrams daily. 4. Osteoporosis. The patient was scheduled to have a Prolia injection in the near future. This will be cancelled. She will continue with calcium and vitamin D. 5. History of adjustment reaction with anxious mood. The patient has been doing well with the Duloxetine and she uses Xanax as needed. Will continue with these medications. 6. Lumbar spinal stenosis. The patient typically does not take medication on a daily basis for the pain. She has tramadol ordered as needed in addition to the hydrocodone. She can use either if needed. DISPOSITION It has been recommended the patient be admitted to [facility] for a short course of therapy in order to improve her mobility and functional capacity as she is the primary caregiver for her who is a paraplegic. They are arranging for some additional help at home. I have encouraged the patient to agree with this plan as she would be best served to have a course of inpatient therapy. Thank you for this consultation. I will follow this patient with you. MD KOFI Jacobo/ELICIA /1:16 PM /2:56 PM
[2016-09-09 17:13] LABS: BLOOD, URINE NEG (NEG); COMMENT (UR) CULT NOT INDICATED; CULTURE IF INDICATED CULT NOT INDICATED; GLUCOSE,URINE NEG (NEG); KETONE, URINE NEG (NEG); NITRITE,URINE NEG (NEG); SQUAMOUS EPITHELIAL CELL URINE <1 /hpf (0-5); URINE COLOR YELLOW (YELLW/STRAW)
[2016-09-09 19:35] LABS: BASOPHIL % 0.3 % (0.0-2.0); EOSINOPHIL % 0.1 % (0.0-4.0); HEMATOCRIT 34.1 % (35.0-46.0); HEMO FLAGS DIFF FINAL; LYMPH % 17.8 % (9.0-44.0); LYMPHOCYTE # 1.4 TH/MM3 (1.0-4.8); MEAN CELL VOLUME 90.7 FL (80.0-100.0); MEAN CORPUSCULAR HEMOGLOBIN 30.5 PG (27.0-34.0); MEAN CORPUSCULAR HGB CONC 33.6 % (32.0-36.0); MONO % 6.5 % (0.0-8.0); NEUT % 75.3 % (16.0-70.0); PLATELET COUNT 219 TH/MM3 (150-450); RED BLOOD COUNT 3.76 MIL/MM3 (4.00-5.30)
[2016-09-09 19:37] LABS: ANION GAP 6 MEQ/L (5-15); BICARBONATE 29.7 MEQ/L (21.0-32.0); BLOOD UREA NITROGEN 14 MG/DL (7-18); CHLORIDE 105 MEQ/L (98-107); GLOMERULAR FILTRATION RATE 94 ML/MIN (>89); POTASSIUM 3.9 MEQ/L (3.5-5.1); SODIUM (NA) 141 MEQ/L (136-145)
[2016-09-09 19:38] LABS: ALT (GPT) 28 U/L (10-53); AST (GOT) 18 U/L (15-37)
[2016-09-09 19:41] LABS: ALKALINE PHOSPHATASE 68 U/L (45-117); TOTAL BILIRUBIN ADULT 0.3 MG/DL (0.2-1.0)
[2016-09-09] MEDS ORDERED: LOSARTAN 50 MG TAB PO SCH (21:00)
[2016-09-10 00:25] VITALS: BP 130/78; PULSE 79; RESP 17; TEMP 98; O2SAT 95
[2016-09-10 04:08] VITALS: BP 134/69; PULSE 60; RESP 17; TEMP 96.8; O2SAT 98
[2016-09-10] MEDS: KETOROLAC TROMETHAMINE 30 MG/ML (IVP) VIAL IVP SCH (05:34)
[2016-09-10] MEDS: RIVAROXABAN 10 MG TAB PO SCH (05:34)
[2016-09-10] MEDS: ACETAMINOPHEN/HYDROcodone 325 MG/7.5 MG TAB PO PRN ×2 (05:34→09:21)
[2016-09-10 08:00] VITALS: BP 140/79; PULSE 60; RESP 18; TEMP 96.9; O2SAT 97
[2016-09-10] MEDS: predniSONE 10 MG TAB PO SCH (08:47)
[2016-09-10] MEDS: CHOLECALCIFEROL (VIT D3) 1000 UNIT TAB PO SCH (08:49)
[2016-09-10] MEDS ORDERED: HYDROCHLOROTHIAZIDE 25 MG TAB PO SCH (09:00)
[2016-09-10] MEDS: DOCUSATE SODIUM 50 MG/SENNA 8.6 MG TAB PO SCH (09:00)
[2016-09-10] MEDS ORDERED: VERAPAMIL HCL 120 MG SUSTAINED RELEASE TAB PO SCH (09:00)
[2016-09-10] MEDS ORDERED: PANTOPRAZOLE SOD 40 MG DELAYED RELEASE TAB PO SCH (09:00)
[2016-09-10] MEDS: SODIUM CHLORIDE 0.9% FLUSH 10 ML FLUSH IV FLUSH SCH (09:00)
[2016-09-10] MEDS ORDERED: DULoxetine HCl DR 30 MG CAP PO SCH (09:00)
[2016-09-10] MEDS ORDERED: LOPERAMIDE HCL 2 MG CAP PO ONE (12:00)
[2016-11-08] MEDS ORDERED: DENOSUMAB 60 MG SQ SCH (09:00)
== END 2016-09-10 11:57 | DRG 488 ==
LOC: HSDC 12:43 → HSDI 17:20 → N06A 18:51 → OBSVTOIN 09-09 18:58
PROVIDERS: ADMIT Orthopaedic Surgery; ATTEND Orthopaedic Surgery
PROC: 0QBD0ZZ Excision of Right Patella, Open Approach (ICD-10-PCS; principal; 2016-09-09)
PROC: 0QQD0ZZ Repair Right Patella, Open Approach (ICD-10-PCS; 2016-09-09)
PROC: 3E0T3CZ (ICD-10-PCS; 2016-09-09)
DX: S82.041A Displaced comminuted fracture of right patella, initial encounter for closed fracture (principal); S82.002A Unspecified fracture of left patella, initial encounter for closed fracture; K51.90 Ulcerative colitis, unspecified, without complications; Z68.43 Body mass index [BMI] 50.0-59.9, adult; G62.9 Polyneuropathy, unspecified; I10 Essential (primary) hypertension; K21.9 Gastro-esophageal reflux disease without esophagitis; E66.9 Obesity, unspecified; M48.06 Spinal stenosis, lumbar region; E78.5 Hyperlipidemia, unspecified; M81.0 Age-related osteoporosis without current pathological fracture; M19.90 Unspecified osteoarthritis, unspecified site; F43.22 Adjustment disorder with anxiety; W18.30XA Fall on same level, unspecified, initial encounter; Y92.511 Restaurant or cafe as the place of occurrence of the external cause; Z85.828 Personal history of other malignant neoplasm of skin; Z87.891 Personal history of nicotine dependence
CPT/HCPCS: 73560; 80053; 81001; 85025; 93005; 94150; G0378; G8987-GO; G8987-GP; G8988-GO; G8988-GP; J0131; J0690; J1580; J1885; J2250; J2270; J2405; J2710; J3010; J7120; J7512